=== PATIENT | male | born 1995 | race Caucasian/White ===

== ENCOUNTER 2022-12-08 10:47 | Emergency (ER) | payer OTHER ==
[~2022-12-08] VITALS: Ht 177.8 cm; Wt 70.5 kg
[2022-12-08] MEDS ORDERED: ALPRAZolam 1 MG TABLET PO ONE (11:15)
[2022-12-08] MEDS ORDERED: ALPRAZolam 0.25 MG TABLET PO ONE (11:15)
[2022-12-08 11:27] LABS: BASOPHILS % (AUTO) 0.9 % (0.0-2.0); EOSINOPHILS % (AUTO) 6.2 % (1.0-6.0); HEMATOCRIT 49.1 % (41-53); HEMOGLOBIN 16.3 g/dL (13.5-17.5); LYMPHOCYTES # (AUTO) 1.9 K/uL (1.0-4.8); LYMPHOCYTES % (AUTO) 32.4 % (22.0-44.0); MEAN CORPUSCULAR HEMOGLOBIN 29.5 pg (26.0-34.0); MEAN CORPUSCULAR HGB CONC 33.2 G/dL (31.0-37.0); MEAN CORPUSCULAR VOLUME 89 fL (80-100); MONOCYTES # (AUTO) 0.3 K/uL (0.1-1.0); MONOCYTES % (AUTO) 4.9 % (2.0-9.0); NEUTROPHILS # (AUTO) 3.2 K/uL (1.8-7.7); NEUTROPHILS % (AUTO) 55.6 % (40.0-70.0); PLATELET COUNT (AUTO) 341 K/uL (150-450); RED BLOOD CELL COUNT(AUTO) 5.51 MIL/uL (4.50-5.90); RED CELL DISTRIBUTION WIDTH 14.3 % (11.5-14.5)
[2022-12-08 11:39] LABS: ANION GAP 13 mmol/L (8-16); CALCIUM, TOTAL 9.1 mg/dL (8.8-10.5); CARBON DIOXIDE 26 mmol/L (22-29); CHLORIDE 101 mmol/L (98-107); CREATININE 0.93 mg/dL (0.60-1.30); GLOMERULAR FILTR. RATE CALC > 60 mL/min (>60); GLUCOSE,RANDOM 99 mg/dL (70-110); POTASSIUM 3.8 mmol/L (3.5-5.1); SODIUM SERUM 140 mmol/L (136-145)
[2022-12-08 11:44] LABS: ALANINE AMINOTRANSFERASE 18 U/L (12-78); ALBUMIN 4.6 g/dL (3.4-5.0); ALKALINE PHOSPHATASE 77 U/L (46-116); ASPARTATE AMINOTRANSFERASE 19 U/L (15-37); BILIRUBIN,TOTAL 0.3 mg/dL (0.1-1.0); TOTAL PROTEIN, SERUM 8.5 g/dL (6.4-8.2)
[2022-12-08 12:36] LABS: AMPHET/METH SCREEN,URINE NEGATIVE (NEGATIVE); BARBITURATE SCREEN, URINE NEGATIVE (NEGATIVE); BENZODIAZEPINES SCREEN,URINE NEGATIVE (NEGATIVE); CANNABINOID SCREEN,URINE NEGATIVE (NEGATIVE); COCAINE SCREEN,URINE NEGATIVE (NEGATIVE)
[2022-12-08 12:37] LABS: METHADONE SCREEN, URINE NEGATIVE (NEGATIVE); OPIATE SCREEN,URINE NEGATIVE (NEGATIVE); PHENCYCLIDINE SCREEN,URINE NEGATIVE (NEGATIVE)
[2022-12-08 12:45] VITALS: BP 112/80
[2022-12-08] MEDS ORDERED: ALPR-709 PO (13:02)
== END 2022-12-08 13:10 | disposition home or self-care (01) ==
LOC: EMS 10:52
DX: F10.129 Alcohol abuse with intoxication, unspecified (principal); F41.9 Anxiety disorder, unspecified; F17.210 Nicotine dependence, cigarettes, uncomplicated; Z79.899 Other long term (current) drug therapy; Z88.0 Allergy status to penicillin; Z88.6 Allergy status to analgesic agent; Y90.6 Blood alcohol level of 120-199 mg/100 ml
CPT/HCPCS: 99283; 80053; 85025; 36415; 80307; G0480

== ENCOUNTER 2024-07-01 17:49 | Inpatient (IN) | payer MEDICAID, OTHER ==
[~2024-07-01] VITALS: Ht 165.1 cm; Wt 74.0 kg
[~2024-07-01 17:49] MED LIST: LITH300C3 PO; QUET300T19 PO
[2024-07-01 19:59] LABS: BASOPHILS % (AUTO) 0.6 % (0.0-2.0); EOSINOPHILS % (AUTO) 6.2 % (1.0-6.0); HEMATOCRIT 47.9 % (41-53); HEMOGLOBIN 15.9 g/dL (13.5-17.5); LYMPHOCYTES # (AUTO) 2.5 K/uL (1.0-4.8); LYMPHOCYTES % (AUTO) 28.7 % (22.0-44.0); MEAN CORPUSCULAR HEMOGLOBIN 29.6 pg (26.0-34.0); MEAN CORPUSCULAR HGB CONC 33.2 G/dL (31.0-37.0); MEAN CORPUSCULAR VOLUME 89 fL (80-100); MONOCYTES # (AUTO) 0.5 K/uL (0.1-1.0); NEUTROPHILS # (AUTO) 5.1 K/uL (1.8-7.7); NEUTROPHILS % (AUTO) 58.5 % (40.0-70.0); PLATELET COUNT (AUTO) 216 K/uL (150-450); RED BLOOD CELL COUNT(AUTO) 5.36 MIL/uL (4.50-5.90); RED CELL DISTRIBUTION WIDTH 14.8 % (11.5-14.5); WHITE BLOOD COUNT (AUTO) 8.7 K/uL (4.5-11.0)
[2024-07-01 20:10] LABS: ANION GAP 13 mmol/L (8-16); CALCIUM, TOTAL 8.3 mg/dL (8.8-10.5); CARBON DIOXIDE 28 mmol/L (22-29); CHLORIDE 100 mmol/L (98-107); GLOMERULAR FILTR. RATE CALC > 60 mL/min (>60); GLUCOSE,RANDOM 99 mg/dL (70-110); POTASSIUM 3.9 mmol/L (3.5-5.1); SODIUM SERUM 141 mmol/L (136-145); UREA NITROGEN, BLOOD 9 mg/dL (7-18)
[2024-07-01 20:51] LABS: COVID AG,FIA SOURCE NASAL SWAB
[2024-07-01 21:10] LABS: SARS-COV2 (COVID) ANTIGEN,FIA Negative (Negative)
[2024-07-01 21:12] LABS: ALCOHOL, BLOOD (SERUM) 270 mg/dL (0-10)
[2024-07-01] MEDS: LORazepam 2 MG TABLET PO ONE (21:18)
[2024-07-01] MEDS: SODIUM CHLORIDE 0.9% 1,000 ML IV ONE (22:02)
[2024-07-01] MEDS: ZOLPIDEM TARTRATE 10 MG TABLET PO PRN (22:13)
[2024-07-02] MEDS: LORazepam 2 MG TABLET PO PRN (05:09)
[2024-07-02 06:10] LABS: APPEARANCE,URINE CLEAR (CLEAR); BILIRUBIN,URINE NEGATIVE (NEGATIVE); COLOR,URINE YELLOW (YELLOW); GLUCOSE, URINE (UA) NEGATIVE (NEGATIVE); KETONES,URINE TRACE mg/dL (NEGATIVE); LEUKOCYTE ESTERASE ,URINE MODERATE (NEGATIVE); OCCULT BLOOD,URINE NEGATIVE (NEGATIVE); PH,URINE 6.5 (5.0-8.0); PH,URINE DRUG SCREEN 6.5 (5.0-8.0); PROTEIN,URINE 30-70 mg/dL (NEGATIVE); SPECIFIC GRAVITIY, URINE 1.021 (1.003-1.030); UROBILINOGEN,URINE <=1.0 mg/dL (<=1.0)
[2024-07-02 06:17] LABS: ALCOHOL, URINE DRUG SCREEN POSITIVE (NEGATIVE); AMPHET/METH SCREEN,URINE POSITIVE (NEGATIVE); BARBITURATE SCREEN, URINE POSITIVE (NEGATIVE); BENZODIAZEPINES SCREEN,URINE NEGATIVE (NEGATIVE); CANNABINOID SCREEN,URINE POSITIVE (NEGATIVE); COCAINE SCREEN,URINE NEGATIVE (NEGATIVE); METHADONE SCREEN, URINE NEGATIVE (NEGATIVE); OPIATE SCREEN,URINE NEGATIVE (NEGATIVE); PHENCYCLIDINE SCREEN,URINE NEGATIVE (NEGATIVE)
[2024-07-02 06:50] LABS: BACTERIA,URINE None Seen /HPF (None Seen); NITRATE,URINE NEGATIVE (NEGATIVE); RBC,URINE None Seen /HPF (0-2); SQUAMOUS EPITHELIAL CELL,UR Few /LPF (None Seen)
[2024-07-02] MEDS: HALOPERIDOL 5 MG TABLET PO PRN (07:01)
[2024-07-03] VITALS (10 sets, daily range): BP systolic 100–138; BP diastolic 60–78; PULSE 72–100; RESP 17–20; TEMP 97.2–98.7; O2SAT 92–100
[2024-07-03] MEDS ORDERED: MAGNESIUM HYDROXIDE SUSPENSION 30 ML UDCUP PO PRN ×2 (05:45→09:00)
[2024-07-03] MEDS ORDERED: OMEPRAZOLE 20 MG CAPSULE PO PRN (05:45)
[2024-07-03] MEDS ORDERED: BACITRACIN 28 GM OINTMENT TP PRN (05:45)
[2024-07-03] MEDS ORDERED: PETROLATUM,WHITE 28 GM JELLY TP PRN (05:45)
[2024-07-03] MEDS ORDERED: MAG HYDROX/ALUMINUM HYD/SIMETH ES 30 ML SUSPENSION UDCUP PO PRN ×2 (05:45→09:00)
[2024-07-03] MEDS ORDERED: CloNIDine HCL 0.1 MG TABLET PO PRN (05:45)
[2024-07-03] MEDS ORDERED: DOCUSATE SODIUM 100 MG CAPSULE PO PRN (05:45)
[2024-07-03] MEDS ORDERED: LOPERAMIDE HCL 2 MG CAPSULE PO PRN ×3 (05:45→09:00)
[2024-07-03] MEDS ORDERED: ALBUTEROL SULFATE HFA 90 MCG/PUFF 8 GM INHALER IH PRN (05:45)
[2024-07-03] MEDS ORDERED: ACETAMINOPHEN 325 MG TABLET PO PRN (05:45)
[2024-07-03] MEDS ORDERED: TUBERCULIN, PURIFIED PROTEIN DERIVATIVE 5 TU/0.1 ML SYRINGE ID ONE (09:00)
[2024-07-03] MEDS ORDERED: GuaiFENesin/D-METHORPHAN [SUGAR-FREE] 200-20MG/10 ML SYRUP UDCUP PO PRN (09:00)
[2024-07-03] MEDS ORDERED: PROMETHAZINE HCL 25 MG TABLET PO PRN (09:00)
[2024-07-03] MEDS: THIAMINE 100 MG TABLET PO SCH (09:44)
[2024-07-03] MEDS: FOLIC ACID 1 MG TABLET PO SCH (09:44)
[2024-07-03] MEDS: MULTIVITAMINS WITH MINERALS, THERAPEUTIC TABLET PO SCH (09:44)
[2024-07-03] MEDS: CYANOCOBALAMIN 1,000 MCG/ML VIAL IM ONE (10:03)
[2024-07-03] MEDS: FLUoxetine HCL 10 MG CAPSULE PO SCH (12:43)
[2024-07-03] MEDS: NALTREXONE HCL 50 MG TABLET PO SCH (16:24)
[2024-07-03] MEDS: OLANZapine 5 MG RAPDIS TABLET PO SCH (20:26)
[2024-07-03] MEDS: DIAZEPAM 10 MG TABLET PO PRN (23:53)
[2024-07-04 04:29] VITALS: BP 124/77; PULSE 96; RESP 18; TEMP 97.4; O2SAT 96
[2024-07-04 05:18] VITALS: BP 124/77; PULSE 96; RESP 18; TEMP 97.4; O2SAT 96
[2024-07-04] MEDS ORDERED: DIAZEPAM 10 MG TABLET PO PRN (07:00)
[2024-07-04 08:36] VITALS: BP 122/62; PULSE 98; RESP 17; TEMP 97.8; O2SAT 99
[2024-07-04] MEDS: DIAZEPAM 10 MG TABLET PO SCH (09:14)
[2024-07-04 09:49] LABS: HEMOGLOBIN A1C 5.2 % (3.8-5.6)
[2024-07-04 10:10] LABS: CHOL/HDL RATIO 1.7 (4.2-7.3); FREE T4 (FREE THYROXINE) 1.09 ng/dL (0.76-1.46); THYROID STIMULATING HORMONE 5.1 uIU/mL (0.36-3.74)
[2024-07-04 14:37] VITALS: BP 122/62; PULSE 90; RESP 18; TEMP 97.8; O2SAT 98
[2024-07-04 16:13] VITALS: BP 131/92
[2024-07-04 20:17] VITALS: BP 131/92; PULSE 98; RESP 18; TEMP 96.5; O2SAT 99
[2024-07-04] MEDS: OLANZapine 10 MG RAPDIS TABLET PO SCH (20:43)
[2024-07-05 08:14] VITALS: BP 119/73; PULSE 85; RESP 17; TEMP 97.5; O2SAT 98
[2024-07-05] MEDS: FLUoxetine HCL 20 MG CAPSULE PO SCH (08:44)
[2024-07-05 11:49] VITALS: BP 119/73; PULSE 85; RESP 17; TEMP 97.5; O2SAT 99
[2024-07-05 20:05] VITALS: BP 120/78; PULSE 95; RESP 17; TEMP 97.6
[2024-07-05] MEDS: MELATONIN 5 MG TABLET PO PRN (23:10)
[2024-07-06 00:09] VITALS: BP 136/86; PULSE 88; RESP 20; TEMP 97.1; O2SAT 99
[2024-07-06] MEDS ORDERED: DIAZEPAM 5 MG TABLET PO PRN (07:00)
[2024-07-06] MEDS: DIAZEPAM 5 MG TABLET PO SCH (09:27)
[2024-07-06 15:41] VITALS: BP 122/76; PULSE 84; RESP 18; TEMP 98.1; O2SAT 98
[2024-07-06 15:53] VITALS: BP 130/80; PULSE 80; RESP 18; TEMP 98.2; O2SAT 98
[2024-07-06 15:59] VITALS: BP 135/94
[2024-07-06] MEDS: ONDANSETRON 4 MG TABLET PO PRN (17:22)
[2024-07-06] MEDS: ClonazePAM 1 MG TABLET PO ONE (19:27)
[2024-07-06] MEDS ORDERED: NICOTINE POLACRILEX 2 MG LOZENGE PO PRN (20:00)
[2024-07-06 20:18] VITALS: BP 148/85; PULSE 99; RESP 16; TEMP 98.1; O2SAT 99
[2024-07-06] MEDS: QUEtiapine FUMARATE 25 MG TABLET PO SCH (20:38)
[2024-07-06] MEDS: TraZODone HCL 50 MG TABLET PO SCH (20:38)
[2024-07-06] MEDS: DiphenhydrAMINE HCL 25 MG CAPSULE PO SCH (20:38)
[2024-07-06] MEDS: BENZOCAINE/MENTHOL LOZENGE PO PRN (21:36)
[2024-07-06] MEDS: ACETAMINOPHEN 325 MG TABLET PO PRN (23:36)
[2024-07-07] MEDS: ClonazePAM 1 MG TABLET PO PRN (00:14)
[2024-07-07] MEDS ORDERED: DIAZEPAM 5 MG TABLET PO PRN (07:00)
[2024-07-07 08:42] VITALS: BP 121/71; PULSE 76; RESP 18; TEMP 97.7; O2SAT 97
[2024-07-07] MEDS: ClonazePAM 1 MG TABLET PO SCH (08:42)
[2024-07-07 11:16] VITALS: BP 121/71; PULSE 76; RESP 18; TEMP 97.7
[2024-07-07] MEDS: NICOTINE 21 MG/24 HOUR PATCH TD PRN (12:00)
[2024-07-07] MEDS: QUEtiapine FUMARATE 25 MG TABLET PO SCH (17:28)
[2024-07-07 20:25] VITALS: BP 136/80; PULSE 80; RESP 18; TEMP 98.1; O2SAT 99
[2024-07-07] MEDS: ROPINIRole HCL 1 MG TABLET PO SCH (20:52)
[2024-07-07 21:58] VITALS: RESP 18
[2024-07-07] MEDS: HydrOXYzine PAMOATE 50 MG CAPSULE PO PRN (22:01)
[2024-07-07] MEDS: IBUPROFEN 600 MG TABLET PO PRN (22:02)
[2024-07-08 08:24] VITALS: BP 123/78; PULSE 81; RESP 17; TEMP 98; O2SAT 98
[2024-07-08 10:46] VITALS: BP 123/78; PULSE 81; RESP 17; TEMP 98; O2SAT 98
[2024-07-08 12:48] VITALS: BP 118/73
[2024-07-08] MEDS ORDERED: QUET25TA PO (13:51)
[2024-07-08] MEDS ORDERED: DIPH-1164 PO (13:53)
[2024-07-08] MEDS ORDERED: ROPI1TAB46 PO (13:53)
[2024-07-08] MEDS ORDERED: DIPH-1243 PO (13:54)
== END 2024-07-08 15:27 | disposition home or self-care (01) | DRG 750 ==
LOC: EMS 17:49 → B2X 07-03 02:22 → B2S 07-03 06:09
PROVIDERS: ADMIT Psychiatry & Neurology Psychiatry; ATTEND Psychiatry & Neurology Psychiatry
PROC: GZHZZZZ Group Psychotherapy (ICD-10-PCS; principal; 2024-07-04)
PROC: GZ51ZZZ Individual Psychotherapy, Behavioral (ICD-10-PCS; 2024-07-04)
DX: F25.9 Schizoaffective disorder, unspecified (principal); R45.851 Suicidal ideations; F10.229 Alcohol dependence with intoxication, unspecified; Z20.822 Contact with and (suspected) exposure to COVID-19; F32.9 Major depressive disorder, single episode, unspecified; F41.9 Anxiety disorder, unspecified; F90.9 Attention-deficit hyperactivity disorder, unspecified type; F17.200 Nicotine dependence, unspecified, uncomplicated; F15.10 Other stimulant abuse, uncomplicated; K59.00 Constipation, unspecified; G47.00 Insomnia, unspecified; Z59.02 Unsheltered homelessness; Z88.0 Allergy status to penicillin; Z88.1 Allergy status to other antibiotic agents
CPT/HCPCS: 80048; 80061; 80307; 81001; 83036; 84439; 84443; 85025; 86592; 96360; 99285; G0480; J3420; J7030; Q0162; 36415-L1; 36415-TC